=== PATIENT | female | born 1955 | race Caucasian/White ===

== ENCOUNTER → 2018-03-15 10:33 | Outpatient (CLI) | payer OTHER, SELFPAY ==
--- NOTE | 2018-03-15 | DI.MG.S_ITS ---
BILATERAL DIGITAL SCREENING MAMMOGRAM 3D/2D WITH CAD: 03/15/2018 CLINICAL: Routine screening. Comparison is made to exams dated: 12/11/2015 mammogram, 02/20/2014 mammogram, and 06/15/2012 mammogram - [facility]. The tissue of both breasts is heterogeneously dense. This may lower the sensitivity of mammography. Current study was also evaluated with a Computer Aided Detection (CAD) system. No significant masses, calcifications, or other findings are seen in either breast. There has been no significant interval change. IMPRESSION: NEGATIVE There is no mammographic evidence of malignancy. A 1 year screening mammogram is recommended. This exam was interpreted at Station ID: [id number]. NOTE: For mammograms, a report in lay terms will be sent to the patient. Approximately 15% of breast malignancies will not be visualized mammographically. In the management of a palpable breast mass, a negative mammogram must not discourage biopsy of a clinically suspicious lesion. Electronically Signed By: Eduardo coy/severo:03/15/2018 11:56:57 letter sent: Normal Exam ACR BI-RADS Category 1: Negative 3341F
== END ==
PROVIDERS: Visit Provider Family Medicine
DX: Z12.31 Encounter for screening mammogram for malignant neoplasm of breast (principal)
CPT/HCPCS: 77063; 77067

== ENCOUNTER → 2019-01-10 09:25 | Outpatient (CLI) | payer MEDICARE, SELFPAY ==
--- NOTE | 2019-01-10 | DI.US.S_ITS ---
PROCEDURE: US ABD AORTA ANEURYSM SCREEN INDICATIONS: SCREEN TECHNIQUE: Real time scanning was performed of the aorta and iliac arteries, with image documentation. COMPARISON: None. FINDINGS: Aorta: Proximal aortic diameter measures 1.7 cm. Mid-aorta measures 1.4 cm. Distal aortic diameter is 1.3 cm. Iliac arteries: Right common iliac artery measures 0.9 cm. Left common iliac artery measures 0.9 cm. IMPRESSION: Negative examination. No evidence of aneurysm Dictated by: Wilner Madden M.D. on 01/10/2019 at 10:41 Approved by: Wilner Madden M.D. on 01/10/2019 at 10:46
== END ==
PROVIDERS: Family Provider Nurse Practitioner; PCP Nurse Practitioner; Visit Provider Nurse Practitioner Family
DX: Z13.6 Encounter for screening for cardiovascular disorders (principal); M85.88 Other specified disorders of bone density and structure, other site; Z78.0 Asymptomatic menopausal state; E28.39 Other primary ovarian failure
CPT/HCPCS: 76706; 77080

== ENCOUNTER → 2020-05-14 11:59 | Outpatient (CLI) | payer MEDICARE, OTHER, SELFPAY ==
--- NOTE | 2020-05-14 | DI.MG.S_ITS ---
BILATERAL DIGITAL SCREENING MAMMOGRAM 3D/2D WITH CAD: 05/14/2020 CLINICAL: Routine screening. Comparison is made to exams dated: 03/15/2018 mammogram, 12/11/2015 mammogram, and 02/20/2014 mammogram - [facility]. The tissue of both breasts is heterogeneously dense. This may lower the sensitivity of mammography. Current study was also evaluated with a Computer Aided Detection (CAD) system. No significant masses, calcifications, or other findings are seen in either breast. There has been no significant interval change. IMPRESSION: NEGATIVE There is no mammographic evidence of malignancy. A 1 year screening mammogram is recommended. This exam was interpreted at Station ID: [id number]. NOTE: For mammograms, a report in lay terms will be sent to the patient. Approximately 15% of breast malignancies will not be visualized mammographically. In the management of a palpable breast mass, a negative mammogram must not discourage biopsy of a clinically suspicious lesion. Electronically Signed By: Dioni eason/severo:05/14/2020 17:46:06 letter sent: Normal Exam ACR BI-RADS Category 1: Negative 3341F
== END ==
PROVIDERS: Family Provider Nurse Practitioner; PCP Family Medicine; Referring Provider Family Medicine; Visit Provider Family Medicine
DX: Z12.31 Encounter for screening mammogram for malignant neoplasm of breast (principal)
CPT/HCPCS: 77063; 77067

== ENCOUNTER → 2020-07-12 12:59 | Outpatient (CLI) | payer MEDICARE, OTHER, SELFPAY ==
--- NOTE | 2020-07-12 | DI.US.S_ITS ---
PROCEDURE: US PELVIC COMPLETE INDICATIONS: POSTMENOPAUSAL BLEEDING TECHNIQUE: Real-time scanning was performed of the pelvic organs, with image documentation. Additional endovaginal scanning was necessary due to incomplete visualization of the adnexal and endometrial structures by transabdominal scanning. COMPARISON: [facility], US, PELVIC COMPLETE, 12/09/2016, 14:41. FINDINGS: Uterus: Uterus is normal in size at 7.7 x 5.7 x 5.5 cm. The endometrium measures 13.4 mm in combined thickness. No endometrial mass or fluid is seen. 2.2 x 2.5 x 3.5 cm intramural fibroid in anterior myometrium is seen. Ovaries: Bilateral ovaries are not visualized on this study. No gross adnexal mass is seen. Other: No pathologic free abdominal or pelvic fluid. IMPRESSION: 1. Thickened endometrium, no discrete endometrial mass or fluid is seen. Finding could represent endometrial hyperplasia. AS400 PROGRAMMER correlation is recommended. Single uterine fibroid as above. 2. Bilateral ovaries are not visualized. No gross adnexal mass. Dictated by: Iglesia Durant M.D. on 07/12/2020 at 14:23 Approved by: Iglesia Durant M.D. on 07/12/2020 at 14:37
== END ==
PROVIDERS: Family Provider Nurse Practitioner; PCP Family Medicine; Referring Provider Nurse Practitioner Family; Visit Provider Nurse Practitioner Family
DX: N93.9 Abnormal uterine and vaginal bleeding, unspecified (principal); N95.0 Postmenopausal bleeding; R93.89 Abnormal findings on diagnostic imaging of other specified body structures; D25.9 Leiomyoma of uterus, unspecified
CPT/HCPCS: 76830; 76856

== ENCOUNTER → 2023-04-24 11:43 | Outpatient (CLI) | payer MEDICARE, OTHER, SELFPAY ==
--- NOTE | 2023-04-24 | DI.MG.S_ITS ---
BILATERAL DIGITAL SCREENING MAMMOGRAM 3D/2D WITH CAD: 04/24/2023 CLINICAL: Routine screening. Comparison is made to exams dated: 05/14/2020 mammogram, 03/15/2018 mammogram, and 12/11/2015 mammogram - [facility]. Both breasts are heterogeneously dense, which may obscure small masses (category c / 51-75% glandular tissue). Current study was also evaluated with a Computer Aided Detection (CAD) system. No significant masses, calcifications, or other findings are seen in either breast. There has been no significant interval change. IMPRESSION: NEGATIVE There is no mammographic evidence of malignancy. A 1 year screening mammogram is recommended. Based on the Tyrer Cuzick model (a risk assessment model) the patient's lifetime risk is 9.2% and her 10 year risk is 5.4%. According to the ACR, ACS, and NCCN guidelines, an annual breast MRI exam along with mammogram is recommended if the patient's lifetime risk is 20% or greater. This exam was interpreted at Station ID: [id number]. NOTE: For mammograms, a report in lay terms will be sent to the patient. Approximately 15% of breast malignancies will not be visualized mammographically. In the management of a palpable breast mass, a negative mammogram must not discourage biopsy of a clinically suspicious lesion. Electronically Signed By: Dioni eason/severo:04/24/2023 17:51:39 letter sent: Normal Exam ACR BI-RADS Category 1: Negative 3341F
--- NOTE | 2023-04-24 | DI.US.S_ITS ---
PROCEDURE: US PELVIC COMPLETE INDICATIONS: LEFT LOWER QUADRANT ABDOMINAL PAIN TECHNIQUE: Real-time scanning was performed of the pelvic organs, with image documentation. Additional endovaginal scanning was necessary due to incomplete visualization of the adnexal and endometrial structures by transabdominal scanning. COMPARISON: None FINDINGS: Uterus: Uterus is anteverted and normal in size at 6.4 x 4.4 x 3.7 cm. The heterogeneously echogenic myometrium shows several microcalcifications to largest 1 measuring 4 millimeters. These and the endometrial stripe are difficult to evaluate due to shadowing. Note is made of a 2.2 x 2.8 x 2.8 centimeter midline anterior subserosal fibroid that may be pedunculated. Ovaries: The right ovary measures 2.7 x 1.4 x 1.8 cm, with a calculated ovarian volume of 3.6 cc. The left ovary measures 2.6 x 1.6 x 1.2 cm, with a calculated ovarian volume of 2.6 cc. The ovaries have a normal sonographic appearance. Less than 12 follicles can be seen in each ovary. No adnexal masses are seen. Images provided of the area of concern of the left inguinal region do not show sonographic abnormality. Other: No pathologic free abdominal or pelvic fluid. IMPRESSION: 1. Images provided of the area of concern in the left inguinal region do not show a sonographic abnormality 2. Small subserosal possibly pedunculated fibroid present Dictated by: David Fang M.D. on 04/24/2023 at 15:26 Approved by: David Fang M.D. on 04/24/2023 at 15:35
== END ==
PROVIDERS: Family Provider Nurse Practitioner; PCP Family Medicine; Referring Provider Family Medicine; Visit Provider Family Medicine
DX: Z12.31 Encounter for screening mammogram for malignant neoplasm of breast (principal); R92.333 Mammographic heterogeneous density, bilateral breasts; R10.32 Left lower quadrant pain; D25.2 Subserosal leiomyoma of uterus; Z86.018 Personal history of other benign neoplasm
CPT/HCPCS: 76856; 77063; 77067

== ENCOUNTER → 2023-05-19 12:12 | Outpatient (CLI) | payer MEDICARE, OTHER, SELFPAY ==
--- NOTE | 2023-05-19 12:14 | DI.MRI.S_ITS ---
PROCEDURE: MR LUMBAR SPINE WO CON INDICATIONS: Spinal stenosis, lumbar region with neurogenic cla TECHNIQUE: Noncontrast sagittal T1 spin echo and T2 fast echo, sagittal STIR, and T2 fast spin echo through the lumbar spine. In cases with scoliosis, additional coronal T2 fast spin echo may be performed. COMPARISON: None. FINDINGS: Image quality: Diagnostic Alignment and Curvature: There is normal bony alignment. Bone Marrow: Marrow is of normal overall signal. No acute vertebral body compression fractures. Spinal Cord: Conus medullaris terminates at the L1-L2 level. Visualized cord demonstrates normal signal and size. Paraspinous Soft Tissues: No paravertebral masses. T12-L1: Normal appearance. L1-L2: Normal appearance. L2-L3: Normal appearance. L3-L4: The disc height and disk signal are relatively well-preserved. Mild to moderate disc bulge is seen. There is a superimposed central disc protrusion. Mild facet joint hypertrophy is seen. Mild bilateral neural foraminal narrowing is seen. Minimal central canal narrowing is seen. L4-L5: The disc height and disk signal are relatively well-preserved. Mild to moderate disc bulge is seen, which is eccentric to the right. Mild facet joint hypertrophy is seen. There is at least moderate right-sided and mild left-sided neural foraminal narrowing. No central canal narrowing is seen. L5-S1: Normal appearance. IMPRESSION: Lower lumbar spine degenerative changes are seen, including at least moderate right-sided neural foraminal narrowing at the L4-L5 level. Dictated by: Chirag Gerber M.D. on 05/19/2023 at 13:27 Approved by: Chirag Gerber M.D. on 05/19/2023 at 13:29
== END ==
LOC: MRI 12:13
PROVIDERS: Family Provider Nurse Practitioner; PCP Family Medicine; Referring Provider Orthopaedic Surgery Orthopaedic Surgery of the Spine; Visit Provider Orthopaedic Surgery Orthopaedic Surgery of the Spine
DX: M48.062 Spinal stenosis, lumbar region with neurogenic claudication (principal); M47.816 Spondylosis without myelopathy or radiculopathy, lumbar region
CPT/HCPCS: 72148

== ENCOUNTER → 2025-02-23 13:39 | Outpatient (CLI) | payer MEDICARE, OTHER, SELFPAY ==
--- NOTE | 2025-02-23 13:41 | DI.RAD.S_ITS ---
PROCEDURE: XR DEXA AXIAL SKELETON INDICATIONS: osteopenia COMPARISON: [facility], CR, XR DEXA AXIAL SKELETON, 01/10/2019, 10:21. FINDINGS: Lumbar Spine: Bone mineral density 0.915 g/cm2, T score -1.2, decreased by 3.7%. Left Femoral Neck: Bone mineral density 0.759 g/cm2, T score -0.8. Left Hip: Bone mineral density 0.957 g/cm2, T score 0.1, decreased by 3 %. Right Femoral Neck: Bone mineral density 0.742 g/cm2, T score -1.0. Right Hip: Bone mineral density 0.957 g/cm2, T score 0.1, no significant change. Fracture Risk Calculation (when applicable): 10-year fracture risk of a major osteoporotic fracture 9.3 percent and of a hip fracture 1.1 percent. (T score greater or equal to -1.0 to: NORMAL) (T score from -1.1 to -2.4: OSTEOPENIA) (T score less than or equal to -2.5: OSTEOPOROSIS) IMPRESSION: Low bone mineral density (osteopenia) by WHO classification. Follow-up guidelines as follows: Osteoporosis: Consider a repeat DEXA and Vertebral Fracture Assessment (VFA) exam in 2 years or sooner if medically necessary, to reassess this patient's status. Osteopenia: Consider a repeat DEXA in 2-3 years to reassess this patient's status, or if there is a new clinical indication. Normal: Consider a repeat DEXA in 5 years or sooner, or if there is a new clinical indication. All treatment decisions require clinical judgment and consideration of individual patient factors, including patient preferences, comorbidities, previous drug use, risk factors not captured in the FRAX model (e.g., frailty, falls, vitamin D deficiency, increased bone turnover, interval significant decline in bone density ) and possible under- or over-estimation of fracture risk by FRAX. In addition, the NOF Guide recommends that FDA-approved medical therapies be considered in postmenopausal women and men age >= 50 years with a: * Hip or vertebral (clinical or morphometric) fracture * T-score of <=-2.5 at the spine or hip * Ten-year fracture probability by FRAX of >= 3% for hip fracture or >=20% for major osteoporotic fracture. Dictated by: Shashank Marin M.D. on 02/25/2025 at 13:30 Approved by: Shashank Marin M.D. on 02/25/2025 at 13:32
== END ==
LOC: RAD 13:41
PROVIDERS: Family Provider Nurse Practitioner; PCP Physician Assistant; Referring Provider Family Medicine; Visit Provider Family Medicine
DX: M85.89 Other specified disorders of bone density and structure, multiple sites (principal); M81.0 Age-related osteoporosis without current pathological fracture
CPT/HCPCS: 77080